=== PATIENT | female | born 1950 | race African-American/Black ===

== ENCOUNTER → 2017-01-17 | Outpatient (CLI) | payer BC ==
[2014-10-04 02:14] VITALS: BP 106/74
--- NOTE | 2017-01-17 11:29 | KCIC ---
Bone Densitometry History: Postmenopausal female. Diabetes, hyperthyroidism. Hysterectomy. Findings: Bone Densitometry was performed with dual photon absorption of the lumbar spine and left proximal femur. Lumbar Spine: Bone density is 1.165 g/cm2 for L1-L4. T-score is 1.1. Z-score is 2.0. Left total femur: Bone density is 1.016 g/cm2. T-score is 0.6. Z-score is 0.8. IMPRESSION: Bone mineral densities of the lumbar spine and left total femur are normal. World Health Organization definition of osteoporosis and osteopenia for women: normal equals T score at or above -1.0 standard deviations; osteopenia equals T score between -1.0 and -2.5 standard deviations; osteoporosis equals T score at or below -2.5 standard deviations. Electronically signed by: Song Chavez MD (01/17/2017 11:26 AM) [id number]
== END | disposition home or self-care (01) ==
LOC: KCIC DEXA 09:56
PROVIDERS: ATTEND Family Medicine
DX: E11.9 Type 2 diabetes mellitus without complications (principal); E05.90 Thyrotoxicosis, unspecified without thyrotoxic crisis or storm; M81.0 Age-related osteoporosis without current pathological fracture; Z78.0 Asymptomatic menopausal state
CPT/HCPCS: 77080

== ENCOUNTER → 2020-03-20 | Outpatient (CLI) | payer MEDICARE ==
[2020-01-02 11:11] VITALS: BP 146/64
[~2020-03-20] MED LIST: ALLO100T PO; ASPI-886 PO; CARV12.511 PO; CETI10TA74 PO; CLON0.1T PO; FLUT9.9S NS; FURO20TA3 PO; HYDR-2145 PO; LOSA100T14 PO; MECL12.582 PO; METF-658 PO; METO50TA6 PO; PANT40TA6 PO; POTA10TA12 PO; REGADENOSON 0.4 MG/5 ML DISP.SYRIN. IV ONE; SIMV40TA18 PO
--- NOTE | 2020-03-20 08:22 | RAD ---
US RENAL ARTERY DUPLEX: 03/20/2020 7:12 AM Indication: 69 years old Female. Hypertension. Comparison: None. FINDINGS: Sonographic evaluation of kidneys is performed utilizing grayscale, color Doppler and spect ral waveform analysis. Right kidney: Size: 12.5 x 6.1 x 5.6cm. Collecting System: No hydronephrosis. No renal calculi detected. Parenchyma: Normal echotexture and morphology. No focal contour deforming renal mass. Right renal artery: Proximal: 74.4 cm/s, resistive index 0.74 Middle: 72.8 cm/s, resistive index 0.75 Distal colon 79.9 cm/s, resistive index 0.78 Aorta peak systolic velocity: 80 cm/s Right renal vein is patent. Left kidney: Left nephrectomy Urinary bladder: Unremarkable. IMPRESSION: No sonographic evidence for renal artery hypertension. No sonographic evidence for obstructive uropat hy. Left nephrectomy changes. Electronically signed by: Marce Matamoros MD (03/20/2020 8:19 AM) CHARLY
--- NOTE | 2020-03-20 13:40 | RAD ---
MR#: [id number] Date of Study: 03/20/2020 Ordering Physician: EDELMIRA YBARRA Referring Physician: ALEXIS KIRAN Tech: RT Daniel Blake) (N) APPROVED REPORT Test Type: Pharmacological Stress Nurse/Tech: Ramón Beatty RN Test Indications: HTN Cardiac History: HTN, See EMR. Medications: ASA, See EMR. Medical History: DM, See EMR. Resting ECG: SR Resting Heart Rate: 78 bpm Resting Blood Pressure: 210/78mmHg Pretest Chest Pain: No chest pain Nurse/Tech Notes Lungs CTA, heart tones regular. Consent: The procedure was explained to the patient in lay terms. Informed consent was witnessed. Jose eout was entered into [employer]. History and Stress Test performed by RT Lou (Sayra) (N) Pharm. Details Pharmacologic stress testing was performed using 0.4mg per 5ml of regadenoson given intravenously ove r 7-10 seconds. Stress Symptoms No chest pain or symptoms. POST EXERCISE Reason for Termination: Infusion complete Max HR: 98 bpm Max Blood Pressure: 210/78mmHg Blood Pressure response to exercise: Normal blood pressure response during stress. Heart Rate response to exercise: WNL Chest Pain: No. Arrhythmia: No. ST Change: No. INTERPRETATION Stress EKG Conclusion: No evidence of stress induced EKG changes. Rest: Stress: Viability: Radiopharm.Tc99m ThvfbsysoLq82u Sestamibi Oxpb08jLy 33mCi Duration 15min. 15min. Img Date 03/20/2020 03/20/2020 Inj-Img Rdpn85rez. 60min. Rest Admin Site:IV - Right HandAdministrator:RT Daniel Blake)(N) Stress Admin Site: IV - Right HandAdministrator: RT Daniel Blake)(N) STRESS DATA End Diast. Vol.98.0mlLVEDV index BSA52.0ml End Syst. Vol.25.0mlLVESV index BSA13.0ml Myocardial Mwxe646.0gEject. Lvrrwejd14.0% Stress Scores Regional WT0.00Summed WT2.00 Regional WM0.00Summed WM0.00 The rest and stress images show normal perfusion, normal contraction and thickening. LV Perf. Quant 17 Seg. SSS0.00 17 Seg. SRS1.00 17 Seg. SDS0.00 Stress Defect Extent (% LAD)0.00Rest Defect Extent (% LAD)0.00Rev. Defect Extent (% LAD)0.00 Stress Defect Extent (% LCX) 0.00Rest Defect Extent (% LCX)5.00Rev. Defect Extent (% LCX)0.00 Stress Defect Extent (% RCA)0.00Rest Defect Extent (% RCA)0.00Rev. Defect Extent (% RCA)0.00 Stress Defect Extent (% JOANIE)0.00Rest Defect Extent (% JOANIE)0.90Rev. Defect Extent (% JOANIE)0.00 Other Information Quality:Fair Risk Assessment: Low Risk Conclusion 1. No evidence of stress induced EKG changes. 2. Normal perfusion at stress/rest. 3. Normal EF at > 70% 4. Low risk study Signed by : Han Rush, Electronically Approved : 03/20/2020 13:40:00
== END ==
LOC: US 07:04
PROVIDERS: ATTEND Internal Medicine Cardiovascular Disease
DX: I10 Essential (primary) hypertension (principal); R07.9 Chest pain, unspecified; Z90.5 Acquired absence of kidney
CPT/HCPCS: 78452; 93017; 93975; A9500; J2785

== ENCOUNTER → 2021-05-06 | Outpatient (CLI) | payer MEDICARE ==
[2020-01-02 11:11] VITALS: BP 146/64
[~2021-05-06] MED LIST changes: -REGADENOSON 0.4 MG/5 ML DISP.SYRIN. IV ONE
--- NOTE | 2021-05-06 17:19 | CARD ---
MR#: [id number] Date of Study: 05/06/2021 Ordering Physician: EDELMIRA BYARRA, Referring Physician: Brenna KIRAN: Duncan Gr [facility] APPROVED REPORT EXAM: Two-dimensional and M-mode echocardiogram with Doppler and color Doppler. Other Information Quality : GoodHR: 70bpm Rhythm : NSR INDICATION Hypertension/HCVD RISK FACTORS Hypertension 2D DIMENSIONS Left Atrium(2D)3.9 (1.6-4.0cm)IVSd1.2 (0.7-1.1cm) Aortic Root(2D)2.5 (2.0-3.7cm)LVDd4.2 (3.9-5.9cm) LVOT Diameter1.9 (1.8-2.4cm)PWd1.2 (0.7-1.1cm) LA Veetvh99 (18-58mL)LVDs2.6 (2.5-4.0cm) Aortic Valve AoV Peak Kurtis.196.5cm/sAoV VTI38.3cm AO Peak GR.15.5mmHgLVOT Peak Kurtis.116.9cm/s AO Mean GR.8mmHgAVA (VMAX)1.69cm2 Mitral Valve MV E Dajprdus519.7cm/sMV E Peak Gr.6mmHg MV DECEL OJTM701qiRY A Zfkuvock045.7cm/s MV E Mean Gr.3mmHgE/A Ratio1.1 Pulmonary Valve PV Peak Hdgvlcoa339.4cm/s Tricuspid Valve TR P. Lvygmvyq207ae/sTR Peak Gr.21mmHg Pulmonary Vein S1 Niksroik47.0cm/sD2 Glbbzasz77.9cm/s LEFT VENTRICLE The left ventricle is normal size. There is borderline to mild concentric left ventricular hypertroph y. The left ventricular systolic function is normal and the ejection fraction is within normal range. LV ejection fraction of 50-55% There is normal LV segmental wall motion. Transmitral Doppler flow pa ttern is Grade II-pseudonormal filling dynamics. No left ventricle thrombus noted on this study. Ther e is no ventricular septal defect visualized. There is no left ventricular aneurysm. There is no mass noted in the left ventricle. RIGHT VENTRICLE The right ventricle is normal size. There is normal right ventricular wall thickness. The right ventr icular systolic function is normal. ATRIA The left atrium is mildly dilated. The right atrium size is normal. The interatrial septum is intact with no evidence for an atrial septal defect or patent foramen ovale as noted on 2-D or Doppler imagi ng. AORTIC VALVE The aortic valve is normal in structure and function. The aortic valve is trileaflet. Doppler and Col or Flow revealed no significant aortic regurgitation. There is no significant aortic valvular stenosi s. There is no aortic valvular vegetation. MITRAL VALVE Mitral annular calcification is borderline. There is no evidence of mitral valve prolapse. There is n o mitral valve stenosis. Doppler and Color-flow revealed trace to mild mitral regurgitation. TRICUSPID VALVE The tricuspid valve is normal in structure and function. Doppler and Color Flow revealed trace tricus pid regurgitation. The PA pressure was estimated at 28 mmHg. There is no tricuspid valve prolapse or vegetation. There is no tricuspid valve stenosis. PULMONIC VALVE The pulmonary valve is normal in structure and function. There is trivial pulmonic regurgitaton. Ther e is no pulmonic valvular stenosis. GREAT VESSELS The aortic root is normal in size. The ascending aorta is normal in size. The pulmonary artery is nor mal. The IVC is normal in size and collapses >50% with inspiration. PERICARDIAL EFFUSION There is no pleural effusion. There is no evidence of significant pericardial effusion. Critical Notification Critical Value: No <Conclusion> The left ventricle is normal size. The left ventricular systolic function is normal and the ejection fraction is within normal range. LV ejection fraction of 50-55% There is borderline to mild concentric left ventricular hypertrophy. Doppler and Color Flow revealed no significant aortic regurgitation. There is no significant aortic valvular stenosis. Doppler and Color-flow revealed trace to mild mitral regurgitation. Doppler and Color Flow revealed trace tricuspid regurgitation. The PA pressure was estimated at 28 mmHg. Signed by : Robi Sanchez MD Electronically Approved : 05/06/2021 17:19:17
== END ==
LOC: ECHO 09:42
PROVIDERS: ATTEND Internal Medicine Cardiovascular Disease
DX: I34.0 Nonrheumatic mitral (valve) insufficiency (principal); I37.1 Nonrheumatic pulmonary valve insufficiency; I10 Essential (primary) hypertension
CPT/HCPCS: 93306; C8929